=== PATIENT | female | born 1960 | race Caucasian/White ===

== ENCOUNTER 2020-09-26 08:32 | Day surgery (SDC) | payer BC ==
[~2020-09-26 08:32] MED LIST: Acetaminophen 325 MG Tab PO SCH; Lactated Ringers 1,000 ML IV SCH; Lidocaine 1%/Sod Bicarbonate in NS 8.4% 1 ML Syringe IDERM PRN; Pregabalin 25 MG Cap PO SCH; Sodium Chloride 0.9% 10 ML Syringe FLUSH PRN; oxyCODONE ER 10 MG TAB.ER PO SCH
[2020-09-26] MEDS ORDERED: Propofol 200 MG/20 ML SDV ONE ×3 (09:25→11:39)
[2020-09-26] MEDS ORDERED: Ondansetron 4 MG/2 ML SDV ONE (09:25)
[2020-09-26] MEDS ORDERED: fentaNYL 100 MCG/2 ML SDV ONE (09:25)
[2020-09-26] MEDS ORDERED: Midazolam 1 MG/ML 2 ML SDV ONE (09:26)
[2020-09-26] MEDS ORDERED: Lidocaine 1% 4 ML ONE (09:27)
[2020-09-26] MEDS ORDERED: ceFAZolin 1 GM Vial ONE (09:28)
--- NOTE | 2020-09-26 09:39 | PCM.PREANE ---
Preanesthetic Assessment - Procedure Proposed Procedure: Left total hip arthroplasty - Anesthesia/Transfusion/Family Hx Anesthesia History: Prior Anesthesia Without Reaction Family History of Anesthesia Reaction: No Transfusion History: No Prior Transfusion(s) - Review of Systems General: No Symptoms Pulmonary: No Symptoms Cardiovascular: Dyspnea on Exertion Gastrointestinal: No Symptoms Neurological: No Symptoms Other: Reports: None - Physical Assessment NPO Status Date: 09/25/20 NPO Status Time: 00:00 Vital Signs: Last Vital Signs Temp 36.3 C 09/26/20 08:35 Pulse 58 L 09/26/20 08:35 Resp 16 09/26/20 08:35 BP 149/60 H 09/26/20 08:35 Pulse Ox 97 09/26/20 08:35 Height: 1.65 m Weight: 83.007 kg ASA Class: 2 Mental Status: Alert & Oriented x3 Dentition: Reports: [place](s), Implants (front bottom middle tooth) Thyro-Mental Finger Breadths: 3 Mouth Opening Finger Breadths: 3 ROM/Head Extension: Full Lungs: Clear to Auscultation, Normal Respiratory Effort Cardiovascular: Regular Rate, Regular Rhythm - Lab Values: Laboratory Last Values MRSA (PCR) Negative 09/11/20 10:58 - Imaging/EKG Impressions: EKG SR rate 57 - Allergies Allergies/Adverse Reactions: Allergies Allergy/AdvReac Type Severity Reaction Status Date / Time aspirin AdvReac Bleeding Verified 09/25/20 12:33 - Anesthesia Plan Pre-Op Medication Ordered: Beta Bran Beta Bran: Atenolol Med Last Dose Date: 09/26/20 Med Last Dose Time: 07:00 - Acknowledgements Anesthesia Type Planned: Spinal Pt an Appropriate Candidate for the Planned Anesthesia: Yes Alternatives and Risks of Anesthesia Discussed w Pt/Guardian: Yes Pt/Guardian Understands and Agrees with Anesthesia Plan: Yes PreAnesthesia Questionnaire HEENT History: Reports: Impaired Vision, Other (See Below) Other HEENT History: wears glasses Cardiovascular History: Reports: High Cholesterol, Hypertension Respiratory History: Reports: None Gastrointestinal History: Reports: None, GERD Genitourinary History: Reports: None [employer] History: Reports: None Musculoskeletal History: Other Musculoskeletal History: RTHA 09/07 Neurological History: Reports: None Psychiatric History: Reports: Anxiety, Depression Endocrine/Metabolic History: Reports: Diabetes, Type II Hematologic History: Reports: None Immunologic History: Reports: None Oncologic (Cancer) History: Reports: None Dermatologic History: Reports: None - Infectious Disease History Infectious Disease History: Reports: Chicken Pox, Shingles - Past Surgical History Head Surgeries/Procedures: Reports: None HEENT Surgical History: Reports: None Cardiovascular Surgical History: Reports: None Respiratory Surgical History: Reports: None GI Surgical History: Reports: Cholecystectomy, Colonoscopy, EGD Female Surgical History: Reports: Breast Biopsy, Hysterectomy Other Female Surgeries/Procedures: bladder surgery Endocrine Surgical History: Reports: None Neurological Surgical History: Reports: None Musculoskeletal Surgical History: Reports: Hip Replacement Oncologic Surgical History: Reports: None Dermatological Surgical History: Reports: None - SUBSTANCE USE Tobacco Use Status *Q: Never Tobacco User Tobacco Use Within Last Twelve Months: No Second Hand Smoke Exposure: No Days Per Week of Alcohol Use: 0 Number of Drinks Per Day: 0 Total Drinks Per Week: 0 Recreational Drug Use History: No - HOME MEDS Home Medications: Home Meds DULoxetine [Cymbalta] 30 mg PO DAILY 09/06/18 [History] Lactobacillus Rhamnosus GG [Culturelle] 1 cap PO DAILY 09/06/18 [History] Rosuvastatin [Crestor] 10 mg PO DAILY 09/06/18 [History] Ubidecarenone [Coq-10] 100 mg PO DAILY 09/06/18 [History] atenoloL [Atenolol] 50 mg PO DAILY 09/06/18 [History] Cholecalciferol (Vitamin D3) [Vitamin D] 5,000 units PO DAILY 09/07/18 [History] Cranberry Fruit Extract [Cranberry] 200 mg PO DAILY 09/25/20 [History] Cyclobenzaprine [Flexeril] 10 mg PO BID PRN #20 tab 09/25/20 [Rx] Flaxseed Oil 1,000 mg PO DAILY 09/25/20 [History] Hydrocortisone [Anusol-HC] 1 dose RECTAL ASDIRECTED PRN 09/25/20 [History] Milk Thistle 175 mg PO DAILY 09/25/20 [History] Niacin 1,000 mg PO DAILY 09/25/20 [History] [place]-3 Fatty Acids/Fish Oil [Fish Oil 1,200 mg Softgel] 2,400 mg PO DAILY 09/25/20 [History] Red Yeast Rice 600 mg PO DAILY 09/25/20 [History] Rivaroxaban [Xarelto] 10 mg PO DAILY #35 tab 09/25/20 [Rx] Valsartan/Hydrochlorothiazide [Diovan Hct 160-12.5 mg Tab] 1 each PO DAILY 09/25/20 [History] oxyCODONE 5 - 10 mg PO Q4H PRN #40 tab 09/25/20 [Rx] - CURRENT (IN HOUSE) MEDS Current Meds: Current Medications Acetaminophen (Tylenol) 975 mg PO ONETIME KYLAH Stop: 09/26/20 13:00 Last Admin: 09/26/20 09:04 Dose: 975 mg Documented by: Morphine Sulfate 8 mg/Epinephrine HCl 0.3 mg/Cefuroxime Sodium 750 mg/Ketorolac Tromethamine 30 mg/Sodium Chloride 7.9 ml 0 mg .XX ASDIRECTED PRN PRN Reason: Pain Stop: 09/26/20 18:00 Lactated Ringer's (Ringers, Lactated) 1,000 mls @ 125 mls/hr IV ASDIRECTED KYLAH Stop: 09/26/20 23:00 Last Admin: 09/26/20 08:52 Dose: 125 mls/hr Documented by: Lidocaine/Sodium Bicarbonate (Buffered Lidocaine 1% In Ns 8.4%) 0.25 ml IDERM ONETIME PRN PRN Reason: Prior to IV Start Stop: 09/26/20 18:00 Last Admin: 09/26/20 08:51 Dose: 0.25 ml Documented by: Oxycodone HCl (Oxycontin) 10 mg PO ONETIME KYLAH Stop: 09/26/20 13:00 Last Admin: 09/26/20 09:04 Dose: 10 mg Documented by: Pregabalin (Lyrica) 50 mg PO ONETIME KYLAH Stop: 09/26/20 13:00 Last Admin: 09/26/20 09:04 Dose: 50 mg Documented by: Sodium Chloride (Saline Flush) 10 ml FLUSH ASDIRECTED PRN PRN Reason: Keep Vein Open Stop: 09/26/20 18:00 Discontinued Medications Bupivacaine HCl (Sensorcaine-Mpf 0.25%) Confirm Administered Dose 30 ml .ROUTE .STK-MED ONE Stop: 09/26/20 09:27 Cefazolin Sodium (Ancef) Confirm Administered Dose 2 gm .ROUTE .STK-MED ONE Stop: 09/26/20 09:29 Fentanyl (Sublimaze) Confirm Administered Dose 100 mcg .ROUTE .STK-MED ONE Stop: 09/26/20 09:26 Lidocaine HCl (Xylocaine-Mpf 1%) Confirm Administered Dose 4 mls @ as directed .ROUTE .STK-MED ONE Stop: 09/26/20 09:28 Midazolam HCl (Versed 1 Mg/Ml) Confirm Administered Dose 2 mg .ROUTE .STK-MED ONE Stop: 09/26/20 09:27 Ondansetron HCl (Zofran) Confirm Administered Dose 4 mg .ROUTE .STK-MED ONE Stop: 09/26/20 09:26 Propofol (Diprivan 20 Ml) Confirm Administered Dose 200 mg .ROUTE .STK-MED ONE Stop: 09/26/20 09:26 Tranexamic Acid (Cyklokapron) Confirm Administered Dose 1,000 mg .ROUTE .STK-MED ONE Stop: 09/26/20 09:27 Vancomycin HCl (Vancomycin) Confirm Administered Dose 1 gm .ROUTE .STK-MED ONE Stop: 09/26/20 09:27
[2020-09-26] MEDS: Bupivacaine 0.25% 10 ML SDV ONE ×2 (11:15→11:31)
[2020-09-26] MEDS: Vancomycin 1 GM SDV ONE ×2 (11:16→11:33)
[2020-09-26] MEDS: Morphine 8 MG, EPINEPHrine 0.3 MG, Cefuroxime 750 MG, Ketorolac 30 MG, Sodium Chloride ... PRN ×10 (11:16→11:32)
--- NOTE | 2020-09-26 12:09 | PCM.POSTAN ---
POST ANESTHESIA ASSESSMENT - MENTAL STATUS Mental Status: Somnolent - VITAL SIGNS Vital Signs: Last Vital Signs Temp 36.3 C 09/26/20 08:35 Pulse 58 L 09/26/20 08:35 Resp 16 09/26/20 08:35 BP 149/60 H 09/26/20 08:35 Pulse Ox 97 09/26/20 08:35 - RESPIRATORY Respiratory Status: Respiratory Rate WNL, Airway Patent, O2 Saturation Stable, Supplemental Oxygen - CARDIOVASCULAR CV Status: Pulse Rate WNL, Blood Pressure Stable - GASTROINTESTINAL GI Status: No Symptoms - PAIN Pain Score: 0 - POST OP HYDRATION Hydration Status: Adequate & Stable - OBSERVATIONS Free Text/Narrative:: no anesthesia complications noted
--- NOTE | 2020-09-26 12:38 | CR ---
Pelvis and right hip: AP view of the pelvis was obtained as well as crosstable lateral view of the left hip. Comparison: Previous pelvis and right hip study of 09/07/18. Old right hip prosthesis is noted. Recently placed left hip prosthesis is seen which appears aligned. No discrete osseous abnormality is appreciated. Single surgical clip is noted with the right pelvis. Phleboliths are also noted within the pelvis. Impression: 1. Old right hip prosthesis and recently placed left hip prosthesis. 2. Other incidental findings. Diagnostic code #2
[2020-09-26] MEDS ORDERED: Meperidine 50 MG/ML Vial IVPUSH PRN (13:50)
--- NOTE | 2020-09-26 13:52 | PCM48HPAN ---
Post Anesthesia Note - EVALUATION WITHIN 48HRS OF ANESTHETIC Vital Signs in Normal Range: Yes Patient Participated in Evaluation: Yes Respiratory Function Stable: Yes Airway Patent: Yes Cardiovascular Function Stable: Yes Hydration Status Stable: Yes Pain Control Satisfactory: Yes Nausea and Vomiting Control Satisfactory: Yes Mental Status Recovered: Yes Vital Signs: Last Vital Signs Temp 36.2 C 09/26/20 12:58 Pulse 50 L 09/26/20 13:40 Resp 12 09/26/20 13:40 BP 164/70 H 09/26/20 13:40 Pulse Ox 99 09/26/20 13:40
[2020-09-26] MEDS ORDERED: oxyCODONE 5 MG Tab PO PRN (17:32)
--- NOTE | 2020-10-16 12:21 | PCM.OPNOTE ---
- General Post-Op/Procedure Note Date of Surgery/Procedure: 09/26/20 Operative Procedure(s): left total hip arthroplasty Pre Op Diagnosis: left hip osteoarthrosis Post-Op Diagnosis: Same Anesthesia Technique: Local, MAC, Spinal Primary Surgeon: Oleksandr Orozco Anesthesia Provider: Martin Gibson Senior Validation Engineer: Dimple Ring Senior Validation Engineer: Carolina Davila EBMal in mLs: 100 Complications: None Condition: Good Free Text/Narrative:: 52 cup 28+4 MDM 3 stem
--- NOTE | 2020-10-16 12:54 | OR ---
DATE OF OPERATION: 09/26/2020 SURGEON: Oleksandr Orozco MD OPERATION PERFORMED: Left total hip arthroplasty. PREOPERATIVE DIAGNOSIS: Left hip osteoarthrosis. POSTOPERATIVE DIAGNOSIS: Left hip osteoarthrosis. ANESTHESIA: Local MAC with spinal. ANESTHESIA: Martin Gibson CRNA ASSISTANTS: Dimple Ring PA-C and Carolina Davila LPN ESTIMATED BLOOD LOSS: 100 mL. COMPLICATIONS: None. CONDITION: Stable. IMPLANTS: 1. [place] size 52 mm solid Tritanium II acetabular cup. 2. Ji size 28 +4 MDM components. 3. Ji size 3 Accolade II stem. DESCRIPTION OF PROCEDURE: The patient was identified in the preoperative holding area. Appropriate site was marked and identified by the surgeon. The patient was taken back to the operative theater where after adequate anesthesia, the patient was placed in the right lateral decubitus position. Axillary roll was placed. Pegs were then placed. Bony prominences were well padded. The patient's gluteal fold was parallel to the floor. Left hip was then sterilely prepped and draped in the usual sterile fashion. OR time-out was performed. The patient received 2 g IV Ancef. Standard posterior incision was made centered over the greater trochanter. This was taken down to the IT band and gluteal fascia which was incised along the incisional length. [place] retractor was then placed. Short external rotators were identified and takedown of the short external rotators was done as well as a capsulotomy from the level of the piriformis down to the lesser trochanter. Hip was then dislocated and neck cut was completed and found to be adequate. Attention was turned to the acetabulum. Anterior and posterior acetabular retractors were then placed. Circumferential removal of the labrum as well as pulvinar was done at this time. Starting with a 48 reamer, I was able to ream up to a 52 which was found to have adequate purchase with a good bony bleeding bed. A 52 mm Tritanium solid acetabular cup was impacted into place in an anatomic position for the patient. At this time, the MDM liner was impacted into place and attention was turned to the femur. A box chisel was used out laterally. A starter awl was placed down the canal, starting with the 0 broach, I was able to broach up to a size 3, which was found to be rotationally and vertically stable. Trial implants were then utilized. First, a +0 was utilized, found to be a minor amount short, so we trialed a +4 and was found to have adequate congregation of leg lengths and was stable throughout range of motion. Trial implants were then removed. The size 3 Accolade II stem was impacted into place and then a 28 +4 MDM components were constructed on the back table and impacted onto the stem. Hip was then relocated. #5 Ethibond suture was used for closure of short external rotators and capsule. 1 L of Irrisept irrigation was irrigated through the hip along with 1 L of pulse lavage irrigation with Ancef. Topical tranexamic acid and vancomycin powder were applied. Periarticular injection was completed. A #2 barbed suture was used for closure of the IT band and gluteal fascia, 2-0 Vicryl was used subcutaneously, and Prineo was used for closure of skin. The patient tolerated the procedure well and was sent to PACU in stable condition. MMODAL /[id number]
== END 2020-09-26 18:00 | disposition home or self-care (01) ==
LOC: JD.SDS 08:32
PROVIDERS: ATTEND Orthopaedic Surgery
DX: M16.12 Unilateral primary osteoarthritis, left hip (principal); F41.9 Anxiety disorder, unspecified; F32.9 Major depressive disorder, single episode, unspecified; I10 Essential (primary) hypertension; E78.2 Mixed hyperlipidemia; F51.01 Primary insomnia; E11.9 Type 2 diabetes mellitus without complications; Z98.890 Other specified postprocedural states; Z79.899 Other long term (current) drug therapy; Z88.8 Allergy status to other drugs, medicaments and biological substances
CPT/HCPCS: 27130; 36415; 73501; 86850; 86900; 86901; 87641; 97116; 97161; A9270; C1776; J0171; J0690; J0697; J1885; J2001; J2175; J2250; J2270; J2405; J2704; J3010; J3370; J3490; J7120; 01214

== ENCOUNTER 2024-12-18 15:34 | Emergency (ER) | payer BC ==
[2024-12-18 16:53] LABS: BASOPHILS PERCENT AUTO 0.6 % (0.0-1.0); EOSINOPHILS PERCENT AUTO 0.6 % (0.0-6.0); HEMOGLOBIN 13.7 gm/dl (12.0-16.0); IMMATURE GRAN ABSOLUTE AUTO 0.02 K/mm3 (0.00-0.05); IMMATURE GRAN PERCENT AUTO 0.3 % (0.0-0.4); LYMPHOCYTES ABSOLUTE AUTO 1.8 K/mm3 (1.0-4.8); LYMPHOCYTES PERCENT AUTO 28.3 % (24.0-44.0); MEAN CORPUSCULAR HEMOGLOBIN 31.5 pg (28.0-32.0); MEAN CORPUSCULAR HGB CONC 35.1 g/dl (32.0-36.0); MEAN CORPUSCULAR VOLUME 89.7 fl (83.0-99.0); MEAN PLATELET VOLUME 9.1 fl (9.4-12.3); MONOCYTES ABSOLUTE AUTO 0.7 K/mm3 (0.0-0.8); MONOCYTES PERCENT AUTO 10.9 % (0.0-8.0); NEUTROPHILS ABSOLUTE AUTO 3.7 K/mm3 (1.8-7.7); NEUTROPHILS PERCENT AUTO 59.3 % (41.0-71.0); PLATELET COUNT,PLT 283 K/mm3 (150-400); RED BLOOD CELL COUNT 4.35 M/mm3 (4.10-5.30); WHITE BLOOD CELL COUNT,WBC 6.23 K/mm3 (3.9-11.3)
[2024-12-18 17:27] LABS: A/G RATIO 0.9 (1-2); ALBUMIN 3.7 g/dl (3.4-5.0); ANION GAP 11.7 (5-15); BILIRUBIN TOTAL 0.4 mg/dL (0.2-1.0); BUN/CREATININE RATIO 15.4 (14-18); C-REACTIVE PROTEIN 0.39 mg/dL (<0.30); CALCIUM 9.6 mg/dL (8.5-10.1); CREATININE 1.3 mg/dL (0.55-1.02); EST CRCL DRUG DOSING (CG) 38.82 mL/min; POTASSIUM,K 3.7 mEq/L (3.5-5.1); PROTEIN TOTAL,TP 7.7 g/dl (6.4-8.2)
[2024-12-18] MEDS: Lactated Ringers 1,000 ML IV ONE (17:54)
[2024-12-18] MEDS: hydrALAZINE 20 MG/ML SDV IVPUSH ONE (19:10)
[2024-12-18] MEDS: Sodium Chloride 0.9% 100 ML IV SCH (19:13)
[2024-12-18] MEDS: Iopamidol 755 Mg/ML 100 ML Bottle IVPUSH ONE (19:13)
[2024-12-18 19:59] LABS: CHOLESTEROL HDL 38 mg/dL (40-59); CHOLESTEROL LDL DIRECT 169 mg/dL (<100); CHOLESTEROL TOTAL 309 mg/dL (<200); TRIGLYCERIDES 400 mg/dL (<150)
[2024-12-18] MEDS: Meclizine 25 MG Tab PO ONE (21:52)
[2024-12-18] MEDS: Diazepam 2 MG Tab PO ONE (21:52)
== END 2024-12-18 21:56 | disposition home or self-care (01) ==
LOC: JD.ED 15:34
DX: I10 Essential (primary) hypertension (principal); H51.0 Palsy (spasm) of conjugate gaze; H69.83 Other specified disorders of Eustachian tube, bilateral; E78.00 Pure hypercholesterolemia, unspecified; E11.9 Type 2 diabetes mellitus without complications; Z88.6 Allergy status to analgesic agent; Z79.899 Other long term (current) drug therapy; Z86.16 Personal history of COVID-19; Z90.49 Acquired absence of other specified parts of digestive tract
CPT/HCPCS: 36415; 70450; 70496; 70498; 80053; 80061; 83735; 84484; 85025; 86140; 96374; 99284; A9270; J0360; J7120; Q9967